=== PATIENT | female | born 1960 | race African-American/Black ===

== ENCOUNTER 2025-04-18 11:06 | Outpatient (CLI) | payer BC | END 2025-04-18 17:00 | disposition home or self-care (01) | LOC: LAB 11:06 | PROVIDERS: ATTEND Family Medicine | DX: Z12.11 Encounter for screening for malignant neoplasm of colon (principal) | CPT/HCPCS: 82270 ==

== ENCOUNTER 2025-04-24 06:14 | Outpatient (CLI) | payer BC ==
[2025-04-24 08:36] LABS: Hematocrit 41.2 % (36.0-46.0); Hemoglobin 14.1 g/dL (12.2-16.2); Mean Corpuscular Hemoglobin 30.0 pg (28.0-32.0); Mean Corpuscular Volume 87.7 fL (80.0-100.0); Nucleated Red Blood Cells % 0.0 %
[2025-04-24 08:55] LABS: Urine Protein, UAD TRACE (Negative)
[2025-04-24 09:33] LABS: Triglycerides 105 mg/dL (< 150)
[2025-04-24 09:34] LABS: Alanine Aminotransferase 17 U/L (7-40); Albumin 4.5 g/dL (3.2-4.8); Anion Gap 11 (5-15); BUN/Creatinine Ratio 11.5 (10.0-20.0); Bilirubin, Total 0.6 mg/dL (0.2-1.0); Blood Urea Nitrogen 10 mg/dL (9-23); Calcium 10.4 mg/dL (8.7-10.4); Carbon Dioxide 26 mmol/L (20-31); Chloride 103 mmol/L (98-107); Potassium 4.1 mmol/L (3.5-5.1); Sodium 140 mmol/L (136-145); Total Protein 7.1 g/dL (5.7-8.2)
[2025-04-24 09:40] LABS: Alkaline Phosphatase 133 U/L (46-116); Cholesterol 210 mg/dL (< 200); Glucose 221 mg/dL (74-106); HDL Cholesterol 63 mg/dL (40-59)
[2025-04-24 11:27] LABS: Uric Acid 4.2 mg/dL (3.1-7.8)
== END 2025-04-24 17:00 | disposition home or self-care (01) ==
LOC: LAB 06:14
PROVIDERS: ATTEND Family Medicine
DX: E11.65 Type 2 diabetes mellitus with hyperglycemia (principal); E78.5 Hyperlipidemia, unspecified; I73.9 Peripheral vascular disease, unspecified; Z12.11 Encounter for screening for malignant neoplasm of colon; Z87.891 Personal history of nicotine dependence
CPT/HCPCS: 36415; 80053; 80061; 81001; 82043; 83036; 84443; 84550; 85025